=== PATIENT | female | born 1960 | race Caucasian/White ===

== ENCOUNTER 2021-02-19 14:22 | Emergency (ER) | payer MEDICARE, OTHER ==
[~2021-02-19] VITALS: Ht 157.5 cm; Wt 62.0 kg
[2021-02-19 16:16] VITALS: BP 118/58
== END 2021-02-19 16:16 | disposition home or self-care (01) ==
LOC: ED 14:22
DX: S00.03XA Contusion of scalp, initial encounter (principal); R26.89 Other abnormalities of gait and mobility; F41.9 Anxiety disorder, unspecified; F32.9 Major depressive disorder, single episode, unspecified; E66.9 Obesity, unspecified; W17.89XA Other fall from one level to another, initial encounter; Y93.89 Activity, other specified; Y92.003 Bedroom of unspecified non-institutional (private) residence as the place of occurrence of the external cause